=== PATIENT | male | born 1955 | race Two or more races ===

== ENCOUNTER → 2017-02-09 | Outpatient (REF) | payer OTHER | LOC: M SMT 13:10 | PROVIDERS: ATTEND Nurse Practitioner Women's Health | DX: R31.29 Other microscopic hematuria (principal) ==

== ENCOUNTER → 2017-02-27 | Outpatient (CLI) | payer OTHER ==
[~2017-02-27] MED LIST: ISOVUE-370 76% 100ML VIAL (Q9967) As Ordered ONE
--- NOTE | 2017-02-27 09:15 | REP ---
Clinical: Microscopic hematuria. Technique: Axial precontrast, contrast enhanced, and delayed images of the abdomen and pelvis using 100 ml Isovue 370 intravenous contrast material with coronal and sagittal re-formations. Findings: Evaluation of the urinary tract system demonstrates normal enhancement and excretion patterns of the bilateral kidneys and collecting system. No evidence for nephroureterolithiasis, hydroureteronephrosis, cystic or renal mass lesion. The prostate gland is significantly enlarged and causes a 4 cm mass-like protrusion along the base of the bladder which less likely represents actual bladder mass. Diffuse small pseudo-diverticula within the bladder wall noted and likely related to chronic outlet obstruction due to the enlarged prostate gland, and the left distal ureter also appears moderately dilated which may also be secondary to chronic partial obstruction. Liver, pancreas, gallbladder, and bilateral adrenal glands are normal. Spleen demonstrates scattered calcifications consistent with prior granulomatous disease. The enteric system is without obstruction or acute inflammatory process and a normal terminal ileum and appendix are identified in the right lower quadrant. No pelvic fluid or significant adenopathy is identified. There is no evidence for ascites. No free air. No significant intraperitoneal or retroperitoneal adenopathy. Vasculature demonstrates scattered atherosclerotic changes without aneurysm or dissection. Musculoskeletal structures without focal osseous abnormality. Lung bases are clear. Visualized heart and pericardium are normal. Impression: 1. Urinary tract findings as described above primarily involving the bladder and distal left ureter and most likely secondary to chronic partial outlet obstruction related to a significantly enlarged prostate gland. 2. Splenic calcifications consistent with prior granulomatous disease. Signed by Renny Rosenberg MD 02/27/2017 09:07 A
== END ==
LOC: M RAD 08:15
PROVIDERS: ATTEND Nurse Practitioner Women's Health
DX: R31.29 Other microscopic hematuria (principal); N40.1 Benign prostatic hyperplasia with lower urinary tract symptoms
CPT/HCPCS: 74178; Q9967

== ENCOUNTER → 2017-03-27 | Outpatient (CLI) | payer OTHER ==
[~2017-03-27] MED LIST changes: +FLOM5CAP PO; +HYDR12.55 PO; -ISOVUE-370 76% 100ML VIAL (Q9967) As Ordered ONE; +LISI-538 PO
[2017-03-30 00:06] LABS: PSA TOTAL 23.1 ng/mL (0.0-4.0)
== END ==
LOC: M SMT 14:44
PROVIDERS: ATTEND Nurse Practitioner Women's Health
DX: R97.20 Elevated prostate specific antigen [PSA] (principal)

== ENCOUNTER 2017-03-29 22:26 | Emergency (ER) | payer OTHER ==
[~2017-03-29] VITALS: Ht 172.7 cm; Wt 71.2 kg
[2017-03-29] MEDS ORDERED: LISI-538 PO (22:36)
[2017-03-29] MEDS ORDERED: HYDR12.55 PO (22:36)
[2017-03-29] MEDS ORDERED: FLOM5CAP PO (22:36)
[2017-03-30 01:45] VITALS: BP 167/89
== END 2017-03-30 02:03 | disposition home or self-care (01) ==
LOC: M ED 23:46
DX: R33.9 Retention of urine, unspecified (principal); N40.0 Benign prostatic hyperplasia without lower urinary tract symptoms; I10 Essential (primary) hypertension; F17.200 Nicotine dependence, unspecified, uncomplicated; Z79.899 Other long term (current) drug therapy

== ENCOUNTER → 2017-06-16 | Outpatient (CLI) | payer OTHER ==
--- NOTE | 2017-06-16 14:27 | REP ---
Prostate sonography: History: Elevated PSA Sonographic findings: Trans rectal prostate sonography demonstrates unremarkable seminal vesicles. Prostate gland is heterogeneously enlarged with calcifications and cystic changes noted. There is a 0.7 cm nodule on the right and a 0.9 x 1.1 cm nodule is seen on the left. Glandular dimensions are measured at 6.3 x 6.2 x 5.5 cm with a calculated glandular volume of 113 ml. Transrectal sonographic guidance provided to Dr. Beasley who performed trans rectal ultrasound guided needle biopsy procedure . Signed by Jason Jason MD 06/16/2017 02:18 P
== END ==
LOC: M SMT PRO 08:15
PROVIDERS: ATTEND Urology
DX: R97.20 Elevated prostate specific antigen [PSA] (principal)
CPT/HCPCS: 76872; 76942; 88344; G0416

== ENCOUNTER → 2021-07-22 | Outpatient (CLI) | payer MEDICARE, OTHER ==
[~2021-07-22] MED LIST changes: +FLOM0.4C39 PO; -FLOM5CAP PO; -LISI-538 PO; +LISI20TA33 PO
[2021-07-22 13:21] LABS: PLATELET COUNT, AUTOMATED 435 10^3/uL (150-450)
[2021-07-22 13:33] LABS: INR 0.95; PROTHROMBIN TIME 13.1 SECONDS (12.7-14.5)
[2021-07-22 13:34] LABS: PARTIAL THROMBOPLASTIN TIME 40.3 SECONDS (25.9-37.0)
== END ==
LOC: M PLALAB 09:18
PROVIDERS: ATTEND Physical Medicine & Rehabilitation
DX: Z01.812 Encounter for preprocedural laboratory examination (principal); Z79.01 Long term (current) use of anticoagulants

== ENCOUNTER → 2021-07-26 | Outpatient (CLI) | payer MEDICARE, OTHER ==
[2021-07-26 09:05] LABS: PLATELET COUNT, AUTOMATED 454 10^3/uL (150-450)
[2021-07-26 09:24] LABS: INR 0.9; PROTHROMBIN TIME 12.6 SECONDS (12.7-14.5)
[2021-07-26 09:25] LABS: PARTIAL THROMBOPLASTIN TIME 36.1 SECONDS (25.9-37.0)
== END ==
LOC: M LAB 08:06
PROVIDERS: ATTEND Physical Medicine & Rehabilitation
DX: Z01.812 Encounter for preprocedural laboratory examination (principal)